=== PATIENT | female | born 1955 | race American Indian/Alaskan Native ===

== ENCOUNTER 2018-05-12 07:28 | Outpatient (CLI) | payer OTHER ==
[2018-05-12] MEDS ORDERED: PROVENTIL IH ONE (08:23)
== END 2018-05-12 07:29 | disposition home or self-care (01) ==
LOC: PF 07:28
PROVIDERS: ATTEND Internal Medicine
DX: I50.9 Heart failure, unspecified (principal); J45.909 Unspecified asthma, uncomplicated
CPT/HCPCS: 94060; 94640

== ENCOUNTER 2018-06-21 13:20 | Emergency (ER) | payer OTHER, MEDICAID ==
[2018-06-21 13:29] VITALS: BP 148/75
[2018-06-21 13:55] LABS: Basophils # (Auto) 0.1 K/mm3 (0.0-0.1); Basophils % (Auto) 0.5 % (0.0-1.8); Eosinophils # (Auto) 0.2 K/mm3 (0.0-0.4); Eosinophils % (Auto) 1.7 % (0.0-4.3); Hematocrit 36.6 % (30.3-42.9); Lymphocytes # (Auto) 2.5 K/mm3 (1.2-5.4); Lymphocytes % (Auto) 22.8 % (13.4-35.0); Mean Corpuscular HGB Conc 33 % (30-34); Mean Corpuscular Hemoglobin 29 pg (28-32); Mean Corpuscular Volume 89 fl (79-97); Monocytes % (Auto) 9.2 % (0.0-7.3); Platelet Count 214 K/mm3 (140-440); Red Cell Distribution Width 13.6 % (13.2-15.2)
[2018-06-21 14:09] LABS: BUN/Creatinine Ratio 10; Blood Urea Nitrogen 9 mg/dL (7-17); Calcium 8.6 mg/dL (8.4-10.2); Hemolysis Index 9
--- NOTE | 2018-06-21 14:37 | XRay Report ---
FINAL REPORT EXAM: XR CHEST ROUTINE 2V HISTORY: Shortness of breath TECHNIQUE: Frontal and lateral views of the chest. PRIORS: None currently available. FINDINGS: Moderate cardiomegaly. There is no effusion. There is no pneumothorax. There is no consolidation. Mildly prominent central pulmonary markings. There are no suspicious osseous lesions. Degenerative changes in the spine. IMPRESSION: Cardiomegaly and pulmonary markings suggest pulmonary vascular congestion. Please correlate for developing CHF.
--- NOTE | 2018-06-21 14:45 | Emergency Department Report ---
ED General Adult HPI - General Chief complaint: Dyspnea/Respdistress Stated complaint: FLU LIKE SYMPTOMS Time Seen by Provider: 06/21/18 14:30 Source: patient Mode of arrival: Ambulatory Limitations: No Limitations - History of Present Illness Initial comments: There is comp related 62-year-old woman with history of heart failure, hypertension and COPD, presents with symptoms primarily referable to upper respiratory infection, with three-day history of nasal congestion, as well as cough which is slightly productive, and slight increase in difficulty breathing. She has not had any fever, chest pain, or abdominal pain, and has been taking all of her medicines regularly and consistently, and has not had any dietary alterations recently. She's not had any swelling of her extremities , and has not noticed any change in her dry weight. She has tried [id number]-[id number] medications for this has not given any results, and she is here primarily because she feels like she needs an antibiotic. Patient is a smoker, has not been able to stop, and had ulnar function testing 6 weeks ago, which showed 50% FEV reduction. She has regular follow-up at [facility], Dr. Virk, and reports that she is scheduled to have a pacemaker placed in August. - Related Data Previous Rx's Medication Instructions Recorded Last Taken Type Amoxicillin/Potassium Clav 1 each PO BID #14 tablet 06/21/18 Unknown Rx [Augmentin 875-125 Tablet] Hydrocodone Bit/Homatrop Me-Br 5 ml PO Q6H PRN #120 syrup 06/21/18 Unknown Rx [Hydrocodone-Homatropine Soln] Allergies Allergy/AdvReac Type Severity Reaction Status Date / Time No Known Allergies Allergy Unverified 05/12/18 07:28 ED Review of Systems ROS: Stated complaint: FLU LIKE SYMPTOMS Other details as noted in HPI Constitutional: malaise. denies: chills, fever ENT: congestion. denies: throat pain Respiratory: cough, shortness of breath (primary little nasal congestion, also with cough) Cardiovascular: denies: chest pain Endocrine: no symptoms reported Gastrointestinal: denies: abdominal pain, nausea, diarrhea Musculoskeletal: denies: back pain, joint swelling, arthralgia Skin: denies: rash, lesions Neurological: denies: headache, weakness, paresthesias ED Past Medical Hx - Past Medical History Previous Medical History?: Yes Hx Hypertension: Yes Hx Congestive Heart Failure: Yes Hx Asthma: Yes Hx COPD: Yes - Surgical History Past Surgical History?: No - Social History Smoking Status: Current Every Day Smoker Substance Use Type: None - Medications Home Medications: Home Medications Medication Instructions Recorded Confirmed Last Taken Type Amoxicillin/Potassium Clav 1 each PO BID #14 tablet 06/21/18 Unknown Rx [Augmentin 875-125 Tablet] Hydrocodone Bit/Homatrop Me-Br 5 ml PO Q6H PRN #120 syrup 06/21/18 Unknown Rx [Hydrocodone-Homatropine Soln] ED Physical Exam - General Limitations: No Limitations General appearance: alert, in no apparent distress, other (nasally congested) - Head Head exam: Present: atraumatic, normocephalic - Eye Eye exam: Present: PERRL, EOMI - ENT ENT exam: Present: normal orophraynx, mucous membranes moist. Absent: normal exam (nasal congested, no active rhinorrhea) - Neck Neck exam: Present: normal inspection, other (no JVD). Absent: tenderness - Respiratory Respiratory exam: Present: normal lung sounds bilaterally. Absent: respiratory distress, wheezes, rales, chest wall tenderness - Cardiovascular Cardiovascular Exam: Present: normal rhythm. Absent: systolic murmur, diastolic murmur - GI/Abdominal GI/Abdominal exam: Present: soft, normal bowel sounds. Absent: tenderness - Extremities Exam Extremities exam: Present: normal inspection. Absent: pedal edema - Back Exam Back exam: Present: normal inspection - Neurological Exam Neurological exam: Present: alert, altered, CN II-XII intact. Absent: motor sensory deficit - Psychiatric Psychiatric exam: Present: normal affect, normal mood - Skin Skin exam: Present: warm, dry. Absent: diaphoretic, petechiae, pallor, ecchymosis ED Course Vital Signs 06/21/18 13:24 Temperature 36.8 C Pulse Rate 87 Respiratory 22 Rate Blood Pressure 148/75 O2 Sat by Pulse 98 Oximetry ED Medical Decision Making - Lab Data Result diagrams: 06/21/18 13:36 06/21/18 13:36 BNP 1750 - EKG Data -: EKG Interpreted by Me (normal sinus rhythm, 90 bpm, left ventricular hypertrophy by voltage criter) EKG shows normal: sinus rhythm, axis (normal QRS axis 40), intervals (normal QRS intervals at 96 ms, normal VA interval 177 ms, normal QT interval 449 ms corrected), QRS complexes (normal QRS complexes), ST-T waves (no ST elevations, nonspecific ST-T wave flattening, predominantly lateral precordial leads.) - EKG Data When compared to previous EKG there are: previous EKG unavailable - Radiology Data Radiology results: report reviewed interpreted by me: Patient has diffuse cardiomegaly, globular, but lung montoya are clear, no evidence of pulmonary vascular congestion, no cephalization, no pulmonary edema , no pleural effusions. - Medical Decision Making Patient has multiple medical problems, each of which contributed to shortness of breath, including heart failure, COPD, and hypertension, but her primary problem clearly seems to stem from an upper respiratory infection with recent nasal congestion and cough. Although her labs show elevation of BNP, I suspect this is chronic for her given her underlying heart failure, she has no chest pain, and EKG is normal. I do not suspect decompensation, as she appears to be reliable and her history of being compliant with her medications, and physical examination shows no evidence of decompensation with no finding suggestive of pedal edema, and heart sounds normal, and chest. Clear chest to auscultation. Patient still smokes, she would benefit from stopping, and although I suspect she has a viral infection, she would likely benefit from a trial of antibiotics , and I will place her on Augmentin, as I believe she is a poor risk for azithromycin given her heart history and risk of QT prolongation. 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 - Differential Diagnosis upper respiratory infection, bronchitis, pneumonia, heart failure, COPD Critical Care Time: No Critical care attestation.: If time is entered above; I have spent that time in minutes in the direct care of this critically ill patient, excluding procedure time. ED Disposition Clinical Impression: Upper respiratory infection, History of COPD, History of heart failure, Tobacco abuse Disposition: [id number] TO HOME OR SELFCARE Is pt being admited?: No Does the pt Need Aspirin: No Condition: Stable Instructions: Upper Respiratory Infection (ED) Additional Instructions: Your findings are suggestive of an upper respiratory infection today, and we see no evidence that there is decompensation of any of your other illnesses, and that your heart failure stable, and your COPD is stable. Chest x-ray shows an enlarged heart, but the lung montoya are clear, and EKG is normal, and lab work shows a mild elevation of heart stress levels, but no other significant abnormal maladies. Most upper respiratory infections are viral, given your history of other illnesses, we believe that she would benefit from antibiotics, and cough medication. Take Augmentin twice daily for the next week. Cough syrup to be taken 1 teaspoon every 4-6 hours as needed for cough. Use her inhaler if feels short of breath or wheezing. Rest while you are feeling poorly and short of breath, limits her activities until you recover, generally within 5-7 days. Check her weights daily, and return to the emergency department if your weight goes up steadily and your shortness of breath it's worse. Have recheck by her doctor in the coming week to assess how you're doing. Prescriptions: Amoxicillin/Potassium Clav [Augmentin 875-125 Tablet] 1 each PO BID #14 tablet Hydrocodone Bit/Homatrop Me-Br [Hydrocodone-Homatropine Soln] 5 ml PO Q6H PRN # 120 syrup PRN Reason: Cough Referrals: PRIMARY CARE, [Primary Care Provider] - 3-5 Days Time of Disposition: 14:55
[2018-06-21] MEDS ORDERED: AUGMENTIN 875 MG PO ONE (14:57)
== END 2018-06-21 15:16 | disposition home or self-care (01) ==
LOC: ED 13:20
DX: J06.9 Acute upper respiratory infection, unspecified (principal); J44.9 Chronic obstructive pulmonary disease, unspecified; F17.200 Nicotine dependence, unspecified, uncomplicated; I11.0 Hypertensive heart disease with heart failure; I50.9 Heart failure, unspecified
CPT/HCPCS: 36415; 71046; 80048; 83880; 85025; 93005; 93010; 99284